=== PATIENT | female | born 1985 | race Caucasian/White ===

== ENCOUNTER 2017-04-28 08:38 | Emergency (ER) | payer OTHER ==
[~2017-04-28] VITALS: Ht 177.8 cm; Wt 68.0 kg
[2017-04-28] MEDS ORDERED: IBUP800 PO (09:20)
[2017-04-28] MEDS ORDERED: TRAM50 ×2 (09:43→09:44)
[2017-04-28] MEDS ORDERED: MELO7.5 (09:43)
== END 2017-04-28 10:01 | disposition home or self-care (01) ==
LOC: ER 08:38
DX: S93.402A Sprain of unspecified ligament of left ankle, initial encounter (principal); M54.42 Lumbago with sciatica, left side; F17.200 Nicotine dependence, unspecified, uncomplicated; X50.1XXA Overexertion from prolonged static or awkward postures, initial encounter
CPT/HCPCS: 73610; 99283